=== PATIENT | male | born 1950 | race Caucasian/White ===

== ENCOUNTER 2019-09-24 06:32 | Emergency (ER) | payer SELFPAY ==
[2019-09-24] MEDS ORDERED: HEPARIN SOD (PORCINE) 1,000 UNIT/ML 10 ML VIAL IV ONE (07:00)
[2019-09-24] MEDS ORDERED: HEPARIN SODIUM,PORCINE/D5W 25,000 UNIT/250 ML RTUINJ IV PRN (07:00)
[2019-09-24] MEDS ORDERED: NITROGLYCERIN 0.4 MG/TAB 25 TAB/BOTTLE SL PRN (07:02)
[2019-09-24] MEDS ORDERED: NITROGLYCERIN 2% OINTMENT 1 GM PACKET TP ONE (07:02)
--- NOTE | 2019-09-24 07:07 | ER Document Report ---
ED Cardiac - General Chief Complaint: Chest Pain Stated Complaint: CHEST PAIN Notes: HPI: 69-year-old male who states that around 2:30 AM he started to have some chest discomfort when he got up to use the bathroom. He states it is left- sided. He denies radiation. He denies aggravating relieving factors. He states it was initially 8 out of 10. Nitroglycerin spray provided by EMS brought up to currently 1 out of 10. He denies nausea, vomiting, diaphoresis, calf pain or leg swelling. Patient states that he has "8 stents" placed separately on 2 different catheterizations in 2004 in 2011 in [facility]. He just moved here recently in November and has no epidemiology internship or primary care physician. He states he takes aspirin daily. He denies being on any other anticoagulant medications. Discussing further with the patient the patient does state that he had some chest pain last 45 minutes yesterday when doing some work with his ladder. ROS: See HPI All other review of systems reviewed and otherwise negative Reviewed vital signs and nursing note as charted by RN. PHYSICAL EXAM: CONSTITUTIONAL: Alert and oriented and responds appropriately to questions. Well-appearing; well-nourished HEAD: Normocephalic; atraumatic CARD: Regular rate and rhythm; no murmurs; symmetric distal pulses RESP: Normal chest excursion without splinting or tachypnea; breath sounds clear and equal bilaterally; no wheezes, no rhonchi, no rales ABD/GI: Normal bowel sounds; non-distended; soft, non-tender; no palpable organomegaly or masses BACK: The back appears normal and is non-tender to palpation EXT: Normal ROM in all joints; non-tender to palpation; no edema SKIN: No acute lesions noted NEURO: CN 2-12 intact; 5/5 bilateral upper and lower extremity strength with sensation intact to light touch PSYCH: The patient's mood and manner are appropriate. Grooming and personal hygiene are appropriate. TRAVEL OUTSIDE OF THE [place] IN LAST 30 DAYS: No - Related Data Allergies/Adverse Reactions: No Known Allergies Allergy (Unverified 09/24/19 06:53) Home Medications: n/a Past Medical History - Social History Smoking Status: Former Smoker Chew tobacco use (# tins/day): No Frequency of alcohol use: None Drug Abuse: None Family History: Reviewed & Not Pertinent Patient has suicidal ideation: No Patient has homicidal ideation: No Physical Exam - Vital signs Vitals: Resp 15 09/24/19 06:44 Course - Re-evaluation Re-evalutation: 09/24/19 07:04 Given the above history and physical examination I ordered cardiac labs, placed the patient on the monitor, obtain the EKG, and initially called [facility] cardiac connections line given the obvious ischemia-like appearance of the EKG. Patient's chest pain is 1 out of 10. No radiation to the back. No calf pain or leg swelling. No shortness of breath. I do believe pulmonary embolism and dissection to be unlikely. I will repeat the EKG. I have ordered heparin bolus and drip. Blood pressure was actually slightly elevated. We will reassess after the nitroglycerin. Initial EKG shows heart of 67, normal sinus rhythm, T waves inverted in leads I, 2, aVL, V2 through V6. P inverted T waves in leads V3 through V5 are extremely sharp, deep, and downsloping. Mild ST depression in leads V4 and V5. 09/24/19 07:16 Patient is currently chest pain-free with no obvious appreciable change in the EKG. Awaiting for the return call from [facility]. 09/24/19 07:20 X-ray of the chest shows a narrow mediastinum with no obvious infiltrates or pneumothorax. I have started the heparin bolus. 09/24/19 07:28 I spoke directly with the epidemiology internship at [facility] Dr. Todd. He has viewed the EKG and I have explained to him the history and physical. He does not believe that this meets STEMI criteria at this time. He would like to await for reassessment and the troponin. 09/24/19 07:33 I have called [facility] and have relayed the elevated troponin level. We have provided heparin. Patient is currently chest pain-free. I did call and speak to Dr. Salas our epidemiology internship here. He states he is around 10 minutes away and will come and view the EKG and assessed the patient as well. 09/24/19 07:44 Patient's blood pressure 170/90 with a heart rate of 66. I will provide a small dose of hydralazine as well as a p.o. beta-екатерина as directed by the epidemiology internship. 09/24/19 07:49 Patient states that his previous work-up has been at [facility] in [facility]. We will attempt to call them and obtain medical records as well as previous EKGs. 09/24/19 08:56 Family states that he is a little "goofier" than normal. He is oriented to person place time and year. I have asked me to perform a CT scan of the head. Patient has no focal neurologic deficits. Patient has no headache. He is also recovering alcoholic. I have added a blood alcohol level. - Vital Signs Vital signs: Temp Pulse Resp BP Pulse Ox 97.6 F 14 118/68 97 09/24/19 07:17 09/24/19 08:31 09/24/19 08:31 09/24/19 08:31 - Laboratory Result Diagrams: 09/24/19 06:42 09/24/19 06:42 Laboratory results interpreted by me: 09/24/19 09/24/19 06:42 06:42 Glucose 128 H Creatine Kinase 179 H CK-MB (CK-2) 5.53 H Critical Care Note - Critical Care Note Total time excluding time spent on procedures (mins): 45 Discharge - Discharge Clinical Impression: Unstable angina Chest pain Qualifiers: Chest pain type: unspecified Qualified Code(s): R07.9 - Chest pain, unspecified Condition: Serious Disposition: [facility] Unit Admitted: ICU
[2019-09-24 07:08] LABS: INTERNATIONAL RATION (INR) 1.16; PROTHROMBIN TIME 14.9 SEC (11.4-15.4)
[2019-09-24 07:10] LABS: ABSOLUTE BASOPHILS # (AUTO) 0.1 10^3/uL (0.0-0.2); ABSOLUTE EOSINOPHILS # (AUTO) 0.1 10^3/uL (0.0-0.6); ABSOLUTE LYMPHOCYTES (AUTO) 1.1 10^3/uL (0.5-4.7); ABSOLUTE MONOCYTES (AUTO) 0.6 10^3/uL (0.1-1.4); ABSOLUTE NEUT (AUTO) 6.5 10^3/uL (1.7-8.2); BASOPHILS % (AUTO) 0.7 % (0-2); HEMATOCRIT 44.3 % (37.9-51.0); HEMOGLOBIN 15.2 g/dL (13.5-17.0); MEAN CORPUSCULAR HEMOGLOBIN 31.8 pg (27.0-33.4); MEAN CORPUSCULAR HGB CONC 34.4 g/dL (32.0-36.0); MEAN CORPUSCULAR VOLUME 92 fl (80-97); MONOCYTES % (AUTO) 7.4 % (3-13); PLATELET COUNT 194 10^3/uL (150-450); RED CELL DISTRIBUTION WIDTH 13.1 % (11.5-14.0); SEGMENTED NEUTROPHILS % (AUTO) 77.9 % (42-78); TOTAL CELLS COUNTED % (AUTO) 100 %; WHITE BLOOD COUNT 8.3 10^3/uL (4.0-10.5)
[2019-09-24 07:17] LABS: ALBUMIN 4.3 g/dL (3.5-5.0); ALKALINE PHOSPHATASE 66 U/L (38-126); ANION GAP 11 (5-19); ASPARTATE AMINO TRANSFERASE 38 U/L (17-59); BILIRUBIN,DIRECT 0.4 mg/dL (0.0-0.4); BILIRUBIN,TOTAL 1.1 mg/dL (0.2-1.3); BLOOD UREA NITROGEN 14 mg/dL (7-20); CARBON DIOXIDE 28 mmol/L (22-30); CHLORIDE 99 mmol/L (98-107); CREATINE KINASE 179 U/L (55-170); GLUCOSE 128 mg/dL (75-110); TOTAL PROTEIN 7.7 g/dL (6.3-8.2)
[2019-09-24 07:28] LABS: CREATINE KINASE MB 5.53 ng/mL (<4.55)
[2019-09-24 07:33] LABS: TROPONIN I 0.1 ng/mL
[2019-09-24] MEDS ORDERED: METOPROLOL SUCCINATE 25 MG TAB.SR.24H PO ONE (07:46)
[2019-09-24] MEDS ORDERED: HYDRALAZINE HCL INJ/PF 20 MG/1 ML SDV IV ONE ×2 (07:46→07:54)
--- NOTE | 2019-09-24 07:55 | RADIOLOGY REPORT (SQ) ---
EXAM DESCRIPTION: X-ray single view chest. CLINICAL HISTORY: 69 years Male, chest pain COMPARISON: None. TECHNIQUE: Single portable x-ray view of the chest performed on 09/24/2019 at 7:23 AM FINDINGS: The lungs are well expanded and are clear. There is no evidence of a pneumothorax. The cardiac silhouette is normal in size and configuration. The mediastinal contours are normal. No acute osseous abnormality is identified. No focal soft tissue abnormalities are seen. Lines and tubes: None. IMPRESSION: No evidence of acute intrathoracic disease.
[2019-09-24 09:25] LABS: ALCOHOL < 10 mg/dL (NONE DETECTED)
--- NOTE | 2019-09-24 09:33 | RADIOLOGY REPORT (SQ) ---
EXAM DESCRIPTION: CT HEAD WITHOUT COMPLETED DATE/TIME: 09/24/2019 9:20 am REASON FOR STUDY: 17; ams COMPARISON: None. TECHNIQUE: Axial images acquired through the brain without intravenous contrast. Images reviewed wi th bone, brain and subdural windows. Additional sagittal and coronal reconstructions were generated. Images stored on PACS. All CT scanners at this facility use dose modulation, iterative reconstruction, and/or weight based d osing when appropriate to reduce radiation dose to as low as reasonably achievable (ALARA). [facility]: Dose Right [facility]: CareDose [facility]: Dose Right [facility]: Teradose 4D [facility]: Little1 RADIATION DOSE: CT Rad equipment meets quality standard of care and radiation dose reduction techniq ues were employed. CTDIvol: 53.2 mGy. DLP: 1070 mGy-cm. LIMITATIONS: None. FINDINGS: There is no acute intracranial hemorrhage, vascular territorial infarct, extra-axial fluid collection, mass effect or midline shift. There is no effacement of the cerebral sulci or basal sub arachnoid cisterns. The crowe-white matter differentiation is preserved. The caliber the ventricles is concordant with the degree of sulcation. The orbits and globes are intact. The paranasal sinuses and the mastoid air cells are clear. There is no fracture of the calvarium. IMPRESSION: No acute intracranial abnormality. EVIDENCE OF ACUTE STROKE: NO. COMMENT: Quality ID # 436: Final reports with documentation of one or more dose reduction techniques (e.g., Automated exposure control, adjustment of the mA and/or kV according to patient size, use of iterative reconstruction technique) TECHNICAL DOCUMENTATION: JOB ID: [id number] [employer]- All Rights Reserved Reading location - IP/workstation name: [email or web address]
[2019-09-24] MEDS ORDERED: HEPARIN SOD (PORCINE) 1,000 UNIT/ML 10 ML VIAL IV PRN (10:01)
--- NOTE | 2019-09-24 11:30 | EKG REPORT ---
SEVERITY:- ABNORMAL ECG - SINUS RHYTHM REPOL ABNRM, PROBABLE ISCHEMIA, DIFFUSE LEADS PROLONGED QT INTERVAL : Confirmed by: Heaven Kwok 24-Sep-2019 11:30:23
--- NOTE | 2019-09-24 11:30 | EKG REPORT ---
SEVERITY:- ABNORMAL ECG - SINUS RHYTHM BORDERLINE LEFT AXIS DEVIATION REPOL ABNRM, CONSIDER ACUTE ISCHEMIA, DIFFUSE LEADS PROLONGED QT INTERVAL : Confirmed by: Heaven Kwok 24-Sep-2019 11:30:05
--- NOTE | 2019-09-24 11:31 | EKG REPORT ---
SEVERITY:- ABNORMAL ECG - SINUS ARRHYTHMIA, RATE 54-74 NONSPECIFIC INTRAVENTRICULAR CONDUCTION DELAY BORDERLINE ST DEPRESSION, ANTEROLATERAL LEADS DEEP T WAVE INVERSION ANTERIOR PRECORDIAL LEADS. CONSISTENT WITH ISCHEMIA : Confirmed by: Heaven Kwok 24-Sep-2019 11:31:12
[2019-09-24 12:52] VITALS: BP 103/64
== END 2019-09-24 12:59 | disposition short-term general hospital (02) ==
LOC: ER 06:32
DX: I20.0 Unstable angina (principal); R07.9 Chest pain, unspecified; Z87.891 Personal history of nicotine dependence
CPT/HCPCS: 93005; 99291; 96375; 96365; 96366; 36415; 82553; 80307; 82550; 85025; 85610; 85730; 80053; 84484; 71045; 70450; 93010; J1644 ×2; J0360

== ENCOUNTER → 2020-03-02 | Outpatient (CLI) | payer MEDICARE, OTHER ==
[2020-03-02 17:37] LABS: ABSOLUTE BASOPHILS # (AUTO) 0.1 10^3/uL (0.0-0.2); ABSOLUTE EOSINOPHILS # (AUTO) 0.3 10^3/uL (0.0-0.6); ABSOLUTE LYMPHOCYTES (AUTO) 1.9 10^3/uL (0.5-4.7); ABSOLUTE MONOCYTES (AUTO) 0.6 10^3/uL (0.1-1.4); ABSOLUTE NEUT (AUTO) 3.9 10^3/uL (1.7-8.2); BASOPHILS % (AUTO) 0.9 % (0-2); EOSINOPHILS % (AUTO) 4.8 % (0-6); HEMATOCRIT 39.2 % (37.9-51.0); HEMOGLOBIN 13.3 g/dL (13.5-17.0); LYMPHOCYTES % (AUTO) 27.4 % (13-45); MEAN CORPUSCULAR HGB CONC 33.9 g/dL (32.0-36.0); MEAN CORPUSCULAR VOLUME 91 fl (80-97); MONOCYTES % (AUTO) 9.1 % (3-13); PLATELET COUNT 212 10^3/uL (150-450); RED CELL DISTRIBUTION WIDTH 14.5 % (11.5-14.0); SEGMENTED NEUTROPHILS % (AUTO) 57.8 % (42-78); TOTAL CELLS COUNTED % (AUTO) 100 %; WHITE BLOOD COUNT 6.8 10^3/uL (4.0-10.5)
[2020-03-02 18:07] LABS: ALBUMIN 4.1 g/dL (3.5-5.0); ALKALINE PHOSPHATASE 64 U/L (38-126); ANION GAP 7 (5-19); ASPARTATE AMINO TRANSFERASE 29 U/L (17-59); BILIRUBIN,TOTAL 0.5 mg/dL (0.2-1.3); BLOOD UREA NITROGEN 19 mg/dL (7-20); CALCIUM 9.1 mg/dL (8.4-10.2); CARBON DIOXIDE 30 mmol/L (22-30); CHLORIDE 98 mmol/L (98-107); GLUCOSE 118 mg/dL (75-110); POTASSIUM 5.6 mmol/L (3.6-5.0); TOTAL PROTEIN 6.9 g/dL (6.3-8.2)
== END ==
LOC: OD 16:19
PROVIDERS: ATTEND Internal Medicine Gastroenterology
DX: B18.2 Chronic viral hepatitis C (principal)
CPT/HCPCS: 36415; 80053; 85025; 87522

== ENCOUNTER → 2020-04-23 | Outpatient (CLI) | payer MEDICARE, OTHER ==
--- NOTE | 2020-04-23 11:04 | RADIOLOGY REPORT (SQ) ---
EXAM DESCRIPTION: CT ABD/PELVIS WITH IV ONLY IMAGES COMPLETED DATE/TIME: 04/23/2020 10:28 am REASON FOR STUDY: PROSTATE CA (C61) C61 MALIGNANT NEOPLASM OF PROSTATE COMPARISON: None. TECHNIQUE: CT scan of the abdomen and pelvis performed using helical scanning technique with dynamic intravenous contrast injection. No oral contrast. Images reviewed with lung, soft tissue, and bone windows. Reconstructed coronal and sagittal MPR images reviewed. Delayed images for evaluation of the urinary system also acquired. All images stored on PACS. All CT scanners at this facility use dose modulation, iterative reconstruction, and/or weight based d osing when appropriate to reduce radiation dose to as low as reasonably achievable (ALARA). [facility]: Dose Right [facility]: CareDose [facility]: Dose Right [facility]: Teradose 4D [facility]: [employer] CONTRAST TYPE AND DOSE: contrast/concentration: Isovue 350.00 mmol/ml; Total Contrast Delivered: 96. 0 ml; Total Saline Delivered: 46.0 ml RENAL FUNCTION: Creatinine 0.8 RADIATION DOSE: CT Rad equipment meets quality standard of care and radiation dose reduction techniq ues were employed. CTDIvol: 11.0 - 14.9 mGy. DLP: 1315 mGy-cm.. LIMITATIONS: None. FINDINGS: LOWER CHEST: No significant findings. No nodules or infiltrates. LIVER: Normal size. No masses. No dilated ducts. SPLEEN: Focal soft tissue mass adjacent to the spleen on series 3, image 26 most likely splenule alth ough a small lymph node cannot be excluded. PANCREAS: 3.3 x 2.1 cm mass arising off the tail the pancreas. The attenuation is very similar to sp tommy and I guess is possible this represents splenic tissue. Neoplasm cannot be excluded. GALLBLADDER: No identified stones by CT criteria. No inflammatory changes to suggest cholecystitis. ADRENAL GLANDS: No significant masses or asymmetry. RIGHT KIDNEY AND URETER: No solid masses. No significant calcifications. No hydronephrosis or hyd roureter. LEFT KIDNEY AND URETER: No solid masses. No significant calcifications. No hydronephrosis or hydr oureter. AORTA AND VESSELS: No aneurysm. No dissection. Renal arteries, SMA, celiac without stenosis. RETROPERITONEUM: There is retroperitoneal adenopathy. Most of the nodes are small in caliber but are numerous. BOWEL AND PERITONEAL CAVITY: No masses or inflammatory changes. No free fluid or peritoneal masses. Scattered diverticuli. No acute diverticulitis. APPENDIX: Normal. PELVIS: Images through the pelvis demonstrate fairly extensive pelvic adenopathy. There is a node al lucy the left inguinal chain measuring 2.8 cm in greatest diameter. Several additional enlarged nodes are identified. There is bilateral inguinal adenopathy. ABDOMINAL WALL: No masses. No hernias. BONES: There are degenerative changes in the lumbar spine. There is a sclerotic lesion in the right ilium. Metastatic disease cannot be excluded. OTHER: No other significant finding. IMPRESSION: 1. Numerous enlarged pelvic lymph nodes. The largest measures 2.8 cm and is best demons trated on series 3, image 61. 2. 3.3 x 2.1 cm mass arising off the tail the pancreas as discussed above. This could represent dawson plasm. The lesion demonstrates very similar attenuation to spleen an ectopic splenic tissue cannot b e excluded. 3. Sclerotic lesion in the right ilium. Metastatic disease is suspected. TECHNICAL DOCUMENTATION: JOB ID: [id number] Quality ID # 436: Final reports with documentation of one or more dose reduction techniques (e.g., Au tomated exposure control, adjustment of the mA and/or kV according to patient size, use of iterative reconstruction technique) 2010 [employer]- All Rights Reserved Reading location - IP/workstation name: [email or web address]
--- NOTE | 2020-04-23 14:15 | RADIOLOGY REPORT (SQ) ---
EXAM DESCRIPTION: NM WHOLE BODY BONE SCAN IMAGES COMPLETED DATE/TIME: 04/23/2020 2:01 pm REASON FOR STUDY: PROSTATE CA (C61 C61 MALIGNANT NEOPLASM OF PROSTATE COMPARISON: CT abdomen and pelvis done earlier the same day. RADIONUCLIDE AND DOSE: 21.6 millicuries Tc99m MDP. The route of agent administration: Intravenous. ADDITIONAL DRUGS AND DOSES: None. TECHNIQUE: Routine delayed images at 3 hour post radionuclide injection acquired of the bony skeleto n including anterior and posterior whole-body projections and additional focused images as needed. LIMITATIONS: None. FINDINGS: BONES: There is increased uptake in the upper sternum and in both ankles. Has there been trauma? Uptake in the sternum could represent metastatic disease. KIDNEYS: Symmetric excretion without obstruction. OTHER: No other significant finding. IMPRESSION: Abnormal uptake in the upper sternum an both ankles as described. Recommend correlation with plain films for further evaluation of the ankles. Plain films of the sternum may be of limited value. CT of the chest may be needed. COMMENT: Quality measure 147: Current bone scan is compared with any available plain radiographs, p rior bone scans, and CT/MRI. TECHNICAL DOCUMENTATION: JOB ID: [id number] 2010 [employer]- All Rights Reserved Reading location - IP/workstation name: [email or web address]
== END ==
LOC: RAD 09:37
PROVIDERS: ATTEND Urology
DX: C61 Malignant neoplasm of prostate (principal); R59.0 Localized enlarged lymph nodes
CPT/HCPCS: 82565; 78306; 74177; A9503; Q9969

== ENCOUNTER → 2020-05-14 | Outpatient (CLI) | payer MEDICARE, OTHER ==
--- NOTE | 2020-05-14 12:05 | RADIOLOGY REPORT (SQ) ---
EXAM DESCRIPTION: CT CHEST WITH IMAGES COMPLETED DATE/TIME: 05/14/2020 9:38 am REASON FOR STUDY: C61 MALIGNANT NEOPLASM OF PROSTATE C61 MALIGNANT NEOPLASM OF PROSTATE COMPARISON: Bone scan from 04/23/2020. TECHNIQUE: CT scan of the chest performed using helical scanning technique with dynamic intravenous contrast injection. Images reviewed with lung, soft tissue and bone windows. Reconstructed coronal and sagittal MPR and MIP images reviewed. All images stored on PACS. All CT scanners at this facility use dose modulation, iterative reconstruction, and/or weight based d osing when appropriate to reduce radiation dose to as low as reasonably achievable (ALARA). [facility]: Dose Right [facility]: CareDose [facility]: Dose Right [facility]: Teradose 4D [facility]: [employer] CONTRAST TYPE AND DOSE: Contrast/concentration: Isovue 350.00 mmol/ml; Total Contrast Delivered: 80. 0 ml; Total Saline Delivered: 55.0 ml RENAL FUNCTION: Creatinine 0.9 milligrams/deciliter. RADIATION DOSE: CT Rad equipment meets quality standard of care and radiation dose reduction techniq ues were employed. CTDIvol: 10.3 mGy. DLP: 416 mGy-cm. LIMITATIONS: None. FINDINGS: LUNGS AND PLEURA: The trachea main bronchi are patent. There is no consolidation, ground- glass opacification, pleural effusion, pneumothorax or pulmonary nodule. HILAR AND MEDIASTINAL STRUCTURES: Nonenlarged (based on size criteria right lower paratracheal and chanel bcarinal lymph nodes that measure up to 7 mm in short axis diameter. There is no hilar adenopathy. HEART AND VASCULAR STRUCTURES: Calcified and noncalcified atheromatous plaques throughout the length of the thoracic aorta ; there is no thoracic aortic dissection or aneurysm. 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 There is severe atherosclerotic calcification of the [place] coronary arteries. There is no pericardial effusion. HARDWARE: Sternotomy wires. UPPER ABDOMEN: No acute abnormality. THYROID AND OTHER SOFT TISSUES: No mass or adenopathy. BONES: Status post sternotomy. There is no acute fracture, osseous lesion or CT correlate to the foc us of abnormal radiotracer uptake in the manubrium. OTHER: No other findings. IMPRESSION: No acute cardiopulmonary process and no CT correlate to the focus of abnormal radiotrace r uptake in the manubrium. TECHNICAL DOCUMENTATION: JOB ID: [id number] Quality ID # 436: Final reports with documentation of one or more dose reduction techniques (e.g., Au tomated exposure control, adjustment of the mA and/or kV according to patient size, use of iterative reconstruction technique) 2010 [employer]- All Rights Reserved Reading location - IP/workstation name: [email or web address]
== END ==
LOC: RAD 08:55
PROVIDERS: ATTEND Urology
DX: C61 Malignant neoplasm of prostate (principal)
CPT/HCPCS: 71260; 82565